=== PATIENT | female | born 1980 ===

== ENCOUNTER 2020-05-21 08:20 | Emergency (ER) | payer MEDICARE ==
[2020-05-21 08:36] VITALS: BP 105/69
[2020-05-21 08:58] LABS: Basophils # (Auto) 0.1 K/mm3 (0.0-0.1); Eosinophils # (Auto) 0.2 K/mm3 (0.0-0.4); Eosinophils % (Auto) 3.6 % (0.0-4.3); Hematocrit 39.8 % (30.3-42.9); Hemoglobin 13.6 gm/dl (10.1-14.3); Lymphocytes # (Auto) 1.5 K/mm3 (1.2-5.4); Lymphocytes % (Auto) 22.2 % (13.4-35.0); Mean Corpuscular HGB Conc 34 % (30-34); Mean Corpuscular Volume 84 fl (79-97); Monocytes # (Auto) 0.5 K/mm3 (0.0-0.8); Monocytes % (Auto) 7.5 % (0.0-7.3); Platelet Count 234 K/mm3 (140-440); Red Blood Count 4.75 M/mm3 (3.65-5.03); Red Cell Distribution Width 13.7 % (13.2-15.2)
[2020-05-21 09:20] LABS: Blood Urea Nitrogen 8 mg/dL (7-17); Calcium 9.3 mg/dL (8.4-10.2); Hemolysis Index 3
[2020-05-21 09:21] LABS: BUN/Creatinine Ratio 11
[2020-05-21 09:58] LABS: Amphetamine Screen,Urine Negative; Benzodiazepines Screen,Urine Negative; Methadone Screen,Urine Negative; Opiate Screen,Urine Negative
[2020-05-21 10:46] LABS: Cannabinoid Screen,Urine PRESUMPTIVE POSITIVE; Cocaine Screen,Urine PRESUMPTIVE POSITIVE
[2020-05-21 12:06] LABS: Bacteria,Urine 1+ /HPF (Negative); Bilirubin,Urine NEG (Negative); Blood,Urine NEG (Negative); Color,Urine Yellow (Yellow); Mucus,Urine FEW /HPF; Protein,Urine <15 mg/dL mg/dL (Negative); Urobilinogen,Urine < 2.0 mg/dL (<2.0)
--- NOTE | 2020-05-21 17:44 | Emergency Department Report ---
ED Psych HPI - General Chief Complaint: Psych Stated Complaint: MENTAL HEALTH/DIZZY Source: patient, EMS Mode of arrival: Ambulatory - History of Present Illness Initial Comments: Chief complaint: " I just need to talk to someone. I need a transitional housing." HPI: This is a 40-year-old female with a history of depression, schizophrenia, marijuana and cocaine use who presents with depression. She also admits to homelessness. She states that she has been depressed. She desires rehabilitation for tobacco and cocaine use. She stated that after using marijuana cocaine at a green party 2 days ago, her depression worsened. She denies suicidal ideation. She denies homicidal ideation. She denies hallucinations. She currently is living at the home of a friend. She desires transitional housing. She denies any physical complaints. MD Complaint: feels depressed -: Gradual, days(s) (2) Associated Psychiatric Symptoms: depression History of same: No Quality: constant Improves With: none Context: recent drug abuse, not taking psychiatric Associated Symptoms: denies other symptoms Treatments Prior to Arrival: none - Related Data Allergies Allergy/AdvReac Type Severity Reaction Status Date / Time No Known Allergies Allergy Unverified 05/21/20 08:31 ED Review of Systems ROS: Stated complaint: MENTAL HEALTH/DIZZY Other details as noted in HPI Comment: All other systems reviewed and negative Constitutional: denies: fever, malaise Respiratory: denies: cough, shortness of breath Cardiovascular: denies: chest pain Neurological: denies: headache, weakness Psychiatric: denies: anxiety, auditory hallucinations, visual hallucinations, homicidal thoughts, suicidal thoughts Hematological/Lymphatic: as per HPI ED Past Medical Hx - Past Medical History Previous Medical History?: Yes Hx Psychiatric Treatment: Yes (DPERESSION/SCHIZOPHERNIA) - Surgical History Past Surgical History?: Yes Additional Surgical History: C SECTION - Social History Substance Use Type: Cocaine, Marijuana ED Physical Exam - General Limitations: No Limitations General appearance: alert, in no apparent distress, other (Pleasant, calm, insightful) - Head Head exam: Present: atraumatic, normocephalic - Eye Eye exam: Present: normal appearance - ENT ENT exam: Present: mucous membranes moist - Neck Neck exam: Present: normal inspection, full ROM - Respiratory Respiratory exam: Present: normal lung sounds bilaterally. Absent: respiratory distress, wheezes, rales, rhonchi - Cardiovascular Cardiovascular Exam: Present: regular rate, normal rhythm, normal heart sounds. Absent: systolic murmur, diastolic murmur, rubs, gallop - GI/Abdominal GI/Abdominal exam: Present: soft, normal bowel sounds. Absent: distended, tenderness, guarding, rebound - Extremities Exam Extremities exam: Present: normal inspection - Neurological Exam Neurological exam: Present: alert, oriented X3 - Psychiatric Psychiatric exam: Present: normal affect, normal mood - Skin Skin exam: Present: warm, dry, intact, normal color. Absent: rash ED Course Vital Signs 05/21/20 08:33 Temperature 99.1 F Pulse Rate 97 H Respiratory 18 Rate Blood Pressure 105/69 O2 Sat by Pulse 94 Oximetry ED Medical Decision Making - Lab Data Result diagrams: 05/21/20 08:39 05/21/20 08:39 Abnormal Lab Results 05/21/20 05/21/20 05/21/20 08:39 08:39 08:39 WBC RBC Hgb Hct MCV MCH MCHC RDW Plt Count Lymph % (Auto) [place] % (Auto) Eos % (Auto) Baso % (Auto) Lymph # (Auto) [place] # (Auto) Eos # (Auto) Baso # (Auto) Seg Neutrophils % Seg Neutrophils # Sodium 141 Potassium 3.3 L Chloride 105.2 Carbon Dioxide 27 Anion Gap 12 BUN 8 Creatinine 0.7 Estimated GFR > 60 BUN/Creatinine Ratio 11 Glucose 118 H Calcium 9.3 Urine Color Urine Turbidity Urine pH Ur Specific [place] Urine Protein Urine Glucose (UA) Urine Ketones Urine Blood Urine Nitrite Urine Bilirubin Urine Urobilinogen Ur Leukocyte Esterase Urine WBC (Auto) Urine RBC (Auto) U Epithel Cells (Auto) Urine Bacteria (Auto) Urine Mucus Salicylates < 0.3 L Urine Opiates Screen Urine Methadone Screen Acetaminophen 5.0 L Ur Barbiturates Screen Ur Phencyclidine Scrn Ur Amphetamines Screen U Benzodiazepines Scrn Urine Cocaine Screen U Marijuana (THC) Screen Drugs of Abuse Note Plasma/Serum Alcohol 05/21/20 05/21/20 05/21/20 08:39 08:39 Unknown WBC 6.8 RBC 4.75 Hgb 13.6 Hct 39.8 MCV 84 MCH 29 MCHC 34 RDW 13.7 Plt Count 234 Lymph % (Auto) 22.2 [place] % (Auto) 7.5 H Eos % (Auto) 3.6 Baso % (Auto) 1.0 Lymph # (Auto) 1.5 [place] # (Auto) 0.5 Eos # (Auto) 0.2 Baso # (Auto) 0.1 Seg Neutrophils % 65.7 Seg Neutrophils # 4.5 Sodium Potassium Chloride Carbon Dioxide Anion Gap BUN Creatinine Estimated GFR BUN/Creatinine Ratio Glucose Calcium Urine Color Yellow Urine Turbidity Hazy Urine pH 5.0 Ur Specific [place] 1.012 Urine Protein <15 mg/dl Urine Glucose (UA) Neg Urine Ketones Neg Urine Blood Neg Urine Nitrite Neg Urine Bilirubin Neg Urine Urobilinogen < 2.0 Ur Leukocyte Esterase Neg Urine WBC (Auto) 1.0 Urine RBC (Auto) 4.0 U Epithel Cells (Auto) 8.0 Urine Bacteria (Auto) 1+ Urine Mucus Few Salicylates Urine Opiates Screen Urine Methadone Screen Acetaminophen Ur Barbiturates Screen Ur Phencyclidine Scrn Ur Amphetamines Screen U Benzodiazepines Scrn Urine Cocaine Screen U Marijuana (THC) Screen Drugs of Abuse Note Plasma/Serum Alcohol < 0.01 05/21/20 Unknown WBC RBC Hgb Hct MCV MCH MCHC RDW Plt Count Lymph % (Auto) [place] % (Auto) Eos % (Auto) Baso % (Auto) Lymph # (Auto) [place] # (Auto) Eos # (Auto) Baso # (Auto) Seg Neutrophils % Seg Neutrophils # Sodium Potassium Chloride Carbon Dioxide Anion Gap BUN Creatinine Estimated GFR BUN/Creatinine Ratio Glucose Calcium Urine Color Urine Turbidity Urine pH Ur Specific [place] Urine Protein Urine Glucose (UA) Urine Ketones Urine Blood Urine Nitrite Urine Bilirubin Urine Urobilinogen Ur Leukocyte Esterase Urine WBC (Auto) Urine RBC (Auto) U Epithel Cells (Auto) Urine Bacteria (Auto) Urine Mucus Salicylates Urine Opiates Screen Negative Urine Methadone Screen Negative Acetaminophen Ur Barbiturates Screen Negative Ur Phencyclidine Scrn Negative Ur Amphetamines Screen Negative U Benzodiazepines Scrn Negative Urine Cocaine Screen Presumptive positive U Marijuana (THC) Screen Presumptive positive Drugs of Abuse Note Disclamer Plasma/Serum Alcohol - Medical Decision Making 1. Acute depression: History of schizophrenia. Patient does not have suicidal ideation nor does she have a plan to harm herself or others. She was cleared by our psychiatric team for outpatient management. I agree that patient does not meet criteria for inpatient stabilization. 2. Polysubstance abuse 3. Mild hypokalemia: No intervention needed. I reviewed labs CBC chemistry within normal limits with exception of hypokalemia. Serum toxicology within normal limits. Urine drug screen positive for cocaine marijuana. Critical care attestation.: If time is entered above; I have spent that time in minutes in the direct care of this critically ill patient, excluding procedure time. ED Disposition Clinical Impression: Acute depression, Polysubstance abuse Disposition: DC-01 TO HOME OR SELFCARE Is pt being admited?: No Does the pt Need Aspirin: No Condition: Stable Additional Instructions: OUTPATIENT MENTAL HEALTH RESOURCES [facility], [facility] Shayla Miles MD: [address] [place] [address] [place] [address] [place] [facility]: [facility] [address] [place] [address] [place] [address] [phone] [facility]: [facility]: [address] [facility] [place] [address] [facility] [id number] [facility]: Tommie Henriquez MD: [address] [facility] [id number] [facility]: [address] [place], [place] [id number] [phone] Transitional Long-Term Providers: Magdi Cifeuntes Abel [phone] Address: [address] [place] [address] Mr. Original: Sukhjinder Schereruitt [phone] Ms. Arredondo: Brielle Simmons [phone] Ms. Shalonda Slaughter [phone] [facility] [phone] Ms. Cisneros: [phone] [facility] Home: [facility] [phone] [facility] CRISIS AND ACCESS LINE:
== END 2020-05-21 18:55 | disposition home or self-care (01) ==
LOC: ED 08:20
DX: F32.9 Major depressive disorder, single episode, unspecified (principal); F19.10 Other psychoactive substance abuse, uncomplicated; F14.10 Cocaine abuse, uncomplicated; F12.10 Cannabis abuse, uncomplicated; Z98.890 Other specified postprocedural states
CPT/HCPCS: 36415; 80048; 80307; 80320; 81001; 85025; G0480

== ENCOUNTER 2021-05-09 03:06 | Emergency (ER) | payer MEDICARE ==
[2021-05-09 03:11] VITALS: BP 133/83
[2021-05-09] MEDS ORDERED: ARIPiprazole 15 MG TAB PO ONE (03:54)
--- NOTE | 2021-05-09 03:59 | Emergency Department Report ---
ED General Adult HPI - General Chief complaint: Medical Clearance Stated complaint: MEDICATION REFILL Time Seen by Provider: 05/09/21 03:52 Source: EMS Mode of arrival: Ambulatory Limitations: No Limitations - History of Present Illness Initial comments: Pt is a 40-year-old female with a history of depression, schizophrenia, marijuana and cocaine use who presents requesting medication refill for Ability po 15mg. Pt is followed by [facility], however she cannot see Psychiatrist until monday and she is out of medication. She also admits to homelessness. She denies SI or HI, no substance at this time. She denies hallucinations. She currently is living at the home of a friend. She denies any physical complaints. - Related Data Previous Rx's Medication Instructions Recorded Last Taken Type ARIPiprazole [Abilify TAB] 15 mg PO ONCE #6 tablet 05/09/21 Unknown Rx Allergies Allergy/AdvReac Type Severity Reaction Status Date / Time No Known Allergies Allergy Verified 05/09/21 03:10 ED Review of Systems ROS: Stated complaint: MEDICATION REFILL Other details as noted in HPI Constitutional: denies: chills, fever Eyes: denies: eye pain, eye discharge, vision change ENT: denies: ear pain, throat pain Respiratory: denies: cough, shortness of breath, wheezing Cardiovascular: denies: chest pain, palpitations Endocrine: no symptoms reported Gastrointestinal: denies: abdominal pain, nausea, diarrhea Genitourinary: as per HPI Musculoskeletal: denies: back pain, joint swelling, arthralgia Skin: denies: rash, lesions Neurological: denies: headache, weakness, paresthesias, vertigo Psychiatric: anxiety. denies: visual hallucinations, homicidal thoughts, suicidal thoughts Hematological/Lymphatic: as per HPI ED Past Medical Hx - Past Medical History Previous Medical History?: Yes Hx Psychiatric Treatment: Yes (DPERESSION/SCHIZOPHERNIA) - Surgical History Additional Surgical History: C SECTION - Social History Substance Use Type: Cocaine, Marijuana - Medications Home Medications: Home Medications Medication Instructions Recorded Confirmed Last Taken Type ARIPiprazole [Abilify TAB] 15 mg PO ONCE #6 tablet 05/09/21 Unknown Rx ED Physical Exam - General Limitations: No Limitations General appearance: alert, in no apparent distress - Head Head exam: Present: atraumatic, normocephalic - Eye Eye exam: Present: normal appearance, PERRL, EOMI Pupils: Present: normal accommodation - ENT ENT exam: Present: mucous membranes moist - Neck Neck exam: Present: normal inspection, full ROM. Absent: tenderness - Respiratory Respiratory exam: Present: normal lung sounds bilaterally. Absent: wheezes, stridor, chest wall tenderness - Cardiovascular Cardiovascular Exam: Present: regular rate, normal rhythm, normal heart sounds. Absent: systolic murmur, diastolic murmur, rubs, gallop - GI/Abdominal GI/Abdominal exam: Present: soft, normal bowel sounds. Absent: distended, tenderness - Rectal Rectal exam: Present: deferred - Extremities Exam Extremities exam: Present: normal inspection, full ROM. Absent: tenderness - Back Exam Back exam: Present: normal inspection, full ROM. Absent: vertebral tenderness - Neurological Exam Neurological exam: Present: alert, oriented X3, CN II-XII intact, normal gait - Expanded Neurological Exam Expanded Patient oriented to: Present: person, place, time Speech: Present: fluid speech Best Eye Response ([place]): (4) open spontaneously Best Motor Response ([place]): (6) obeys commands Best Verbal Response ([place]): (5) oriented [place] Total: 15 - Psychiatric Psychiatric exam: Present: anxious. Absent: agitated, homicidal ideation, suicidal ideation - Skin Skin exam: Present: warm, dry, intact, normal color. Absent: rash ED Course Vital Signs 05/09/21 03:10 Temperature 98.9 F Pulse Rate 105 H Respiratory 14 Rate Blood Pressure 133/83 [Left] O2 Sat by Pulse 100 Oximetry ED Medical Decision Making - Medical Decision Making Patient is alert oriented x3 patient appears well-hydrated well-nourished, patient in no acute distress. There is no SI there is no HI. Patient requesting refill of Abilify until she can see psychiatrist at [facility] on Monday. Given history and long-term tolerance of medication with control of symptoms discussed will follow small amount of medication until follow-up appointment on Monday. Current prescriptions Abilify 15 mg p.o. daily were prescribed 3 tabs which should be quantity sufficient to follow-up with [place] on Monday morning. Patient verbalized agreement and understanding with discharge plan. Patient DC to self at this time. Critical care attestation.: If time is entered above; I have spent that time in minutes in the direct care of this critically ill patient, excluding procedure time. ED Disposition Clinical Impression: Medication refill Disposition: HOME / SELF CARE / HOMELESS Is pt being admited?: No Does the pt Need Aspirin: No Condition: Stable Instructions: Medicine Refill at the Emergency Department Additional Instructions: Take all medications as prescribed, follow-up with [place] psychiatry as scheduled for Monday 2 days from now. Return to emergency department should symptoms worsen. Prescriptions: ARIPiprazole [Abilify TAB] 15 mg PO ONCE #6 tablet Referrals: KERRI WILKINS MD [Referring] - 3-5 Days Forms: Work/School Release Form(ED) Time of Disposition: 04:05
== END 2021-05-09 05:18 | disposition home or self-care (01) ==
LOC: ED 03:06
DX: Z76.0 Encounter for issue of repeat prescription (principal); F20.9 Schizophrenia, unspecified; F12.90 Cannabis use, unspecified, uncomplicated
CPT/HCPCS: 99283